=== PATIENT | male | born 1950 | race Caucasian/White ===

== ENCOUNTER → 2022-11-27 | Outpatient (CLI) | payer MEDICARE ==
--- NOTE | 2022-11-28 09:07 | CA ---
Transthoracic Echo Report Name: Serafin Prajapati Age: 72 Gender: M : 1950 Exam Date: 11/27/2022 13:56 Exam Location: [facility] Ht (in): 67 Wt (lb): 160 Ordering Physician: Jatin Patel DO Attending/Referring Phys: Manager House Estefani Beal RDCS Procedure CPT: Indications: I49.3 Cardiac Hx: Technical Quality: Good Contrast 1: Total Dose (mL): Contrast 2: Total Dose (mL): MEASUREMENTS (Male / Female) Normal Values 2D ECHO LV Diastolic Diameter PLAX 5.2 cm 4.2 - 5.9 / 3.9 - 5.3 cm LV Systolic Diameter PLAX 3.4 cm IVS Diastolic Thickness 1.2 cm 0.6 - 1.0 / 0.6 - 0.9 cm LVPW Diastolic Thickness 1.2 cm 0.6 - 1.0 / 0.6 - 0.9 cm LV Relative Wall Thickness 0.5 RV Internal Dim ED PLAX 3.6 cm LA Systolic Diameter LX 4.8 cm 3.0 - 4.0 / 2.7 - 3.8 cm LV Diastolic Volume MOD 4C 106.5 cm??? LV Systolic Volume MOD 4C 39.5 cm??? LV Ejection Fraction MOD 4C 62.9 % LV Diastolic Length 4C 8.4 cm LV Systolic Length 4C 6.7 cm LV Diastolic Volume MOD 2C 117.3 cm??? LV Systolic Volume MOD 2C 28.7 cm??? LV Ejection Fraction MOD 2C 75.5 % LV Diastolic Length 2C 8.9 cm LV Systolic Length 2C 7.0 cm LA Volume 80.2 cm??? 18 - 58 / 22 - 52 cm??? M-MODE Aortic Root Diameter MM 3.2 cm AV Cusp Separation MM 2.5 cm DOPPLER AV Peak Velocity 129.8 cm/s AV Peak Gradient 6.7 mmHg MV Peak Velocity 122.8 cm/s MV Peak Gradient 6.0 mmHg MV Mean Velocity 71.3 cm/s MV Mean Gradient 2.6 mmHg MV Velocity Time Integral 27.3 cm MV Area PHT 2.4 cm??? Mitral E Point Velocity 118.7 cm/s Mitral A Point Velocity 94.4 cm/s Mitral E to A Ratio 1.3 MV Deceleration Time 229.8 ms FINDINGS Left Ventricle Left ventricular ejection fraction is estimated at 55 %. Left ventricular cavity size normal. Mildly increased septal wall thickness. Right Ventricle Mild right ventricular dilatation. Unable to estimate the right ventricular systolic pressure. Right Atrium Normal right atrial size. Left Atrium Moderately increased left atrial diameter. Severely increased left atrial volume. Mildly increased left atrial area. Mitral Valve Mitral valve thickened. Mild mitral annular calcification. Mild mitral regurgitation. Aortic Valve Trileaflet aortic valve. Aortic valve sclerosis. Tricuspid Valve Structurally normal tricuspid valve. No tricuspid stenosis, regurgitation or prolapse. Pulmonic Valve Structurally normal pulmonic valve. No pulmonic regurgitation. Pericardium Normal pericardium. No pericardial effusion. Aorta Normal size aortic root and proximal ascending aorta. CONCLUSIONS Normal LV size and mild concentric LVH normal systolic function. Mild mitral and tricuspid regurgitation. No pulmonary hypertension. No pericardial effusion Previewed by: Dr. Dina Fontenot MD (Electronically Signed) Final Date: 28 Nov 2022 09:06
== END | disposition home or self-care (01) ==
LOC: RADECHMAIN 13:48
PROVIDERS: ATTEND Family Medicine
DX: I08.1 Rheumatic disorders of both mitral and tricuspid valves (principal); I49.3 Ventricular premature depolarization
CPT/HCPCS: 93306

== ENCOUNTER 2023-03-16 18:25 | Emergency (ER) | payer MEDICARE ==
--- NOTE | 2023-03-16 18:51 | ED ---
General Adult HPI - General Chief complaint: Overdose Stated complaint: Overdose-Suicidal Source: EMS Mode of arrival: EMS Limitations: altered mental status - History of Present Illness Initial comments: This is a 73-year-old male with a reported past medical history including anxi ety presents emergency department via EMS after a suicidal attempt. Is reported the patient was having suicidal thoughts and took 20 tablets of his 0.25 mg and asked tabs. The patient stated that he had these thoughts for a long time but has never acted on them. The patient stated that he wanted to hurt himself by taking these medications. The patient was drowsy on arrival however couldn't answer questions appropriately. The patient denied any other acute pain or complaints at this time. It was reported by EMS that the patient's is presenting to the emergency department to petition the patient as he is reportedly been suicidal over the last several days. - Related Data Home Medications Medication Instructions Recorded Confirmed ALPRAZolam [Xanax] 0.25 mg PO DAILY PRN 03/16/23 03/16/23 Aspirin 40.5 mg PO DAILY 03/16/23 03/16/23 Budesonide/Formoterol Fumarate 2 puff INHALATION RT-BID 03/16/23 03/16/23 [Symbicort 160-4.5 Mcg Inhaler] PARoxetine HCL [Paxil] 30 mg PO DAILY 03/16/23 03/16/23 Allergies Allergy/AdvReac Type Severity Reaction Status Date / Time clobetasol Allergy Rash/Hives Verified 03/17/23 00:49 codeine Allergy Abdominal Verified 03/17/23 00:49 Pain fluocinolone acetonide Allergy Rash/Hives Verified 03/17/23 00:49 Penicillins Allergy Rash/Hives Verified 03/17/23 00:49 Review of Systems ROS Statement: Those systems with pertinent positive or pertinent negative responses have been documented in the HPI. ROS Other: All systems not noted in ROS Statement are negative. Past Medical History Past Medical History: No Reported History History of Any Multi-Drug Resistant Organisms: None Reported Past Surgical History: No Surgical Hx Reported Past Psychological History: Anxiety, Depression Smoking Status: Never smoker Past Alcohol Use History: None Reported Past Drug Use History: None Reported General Exam Limitations: altered mental status (ANOx2-3) General appearance: in no apparent distress, lethargic Head exam: Present: atraumatic, normocephalic, normal inspection Eye exam: Present: normal appearance, PERRL Pupils: Present: normal accommodation ENT exam: Present: normal exam, normal oropharynx, mucous membranes moist Neck exam: Present: normal inspection, full ROM Respiratory exam: Present: normal lung sounds bilaterally Cardiovascular Exam: Present: regular rate, normal rhythm, normal heart sounds GI/Abdominal exam: Present: soft, normal bowel sounds Extremities exam: Present: normal inspection, full ROM Back exam: Present: normal inspection, full ROM Neurological exam: Present: alert, altered (ANOx2-3) Psychiatric exam: Present: suicidal ideation Skin exam: Present: warm, dry Course Vital Signs 03/16/23 03/17/23 03/17/23 18:32 07:22 10:00 Temperature 98.4 F Pulse Rate 64 80 80 Respiratory 16 20 20 Rate Blood Pressure 140/84 140/80 135/60 O2 Sat by Pulse 99 98 98 Oximetry 03/17/23 03/17/23 03/17/23 12:00 14:00 16:57 Temperature 98.3 F 98.2 F Pulse Rate 72 60 68 Respiratory 20 20 16 Rate Blood Pressure 140/60 150/70 168/78 O2 Sat by Pulse 98 98 98 Oximetry 03/17/23 03/17/23 03/18/23 18:00 20:54 06:24 Temperature 98.1 F 98 F Pulse Rate 72 60 66 Respiratory 20 19 19 Rate Blood Pressure 172/70 133/67 157/79 O2 Sat by Pulse 98 96 99 Oximetry 03/18/23 03/18/23 08:46 10:53 Temperature 97.9 F 97.6 F Pulse Rate 74 74 Respiratory 18 18 Rate Blood Pressure 157/73 172/69 O2 Sat by Pulse 97 98 Oximetry EKG Findings - EKG Comments: EKG Findings:: An EKG was obtained and was interpreted by myself showing a rate of 63, IA interval 179, QRS duration 94 and QTC of 459. This EKG showed a normal sinus rhythm with occasional PVCs. There was however no ST segment elevation or depression noted. Medical Decision Making - Medical Decision Making Was pt. sent in by a medical professional or institution (, PA, MOTORCYCLE DELIVERER, urgent care, hospital, or longterm...) When possible be specific @ -No Did you speak to anyone other than the patient for history (EMS, parent, family, police, friend...)? What history was obtained from this source @ -Yes, EMS who stated that the patient's was coming to petition the patient. It is also reported the patient was mildly lethargic on their arrival but was able to answer questions. Did you review nursing and triage notes (agree or disagree)? Why? @ -I reviewed and agree with nursing and triage notes Were old charts reviewed (outside hosp., previous admission, EMS record, old EKG, old radiological studies, urgent care reports/EKG's, longterm records)? Report findings @ -No old charts were reviewed Differential Diagnosis (chest pain, altered mental status, abdominal pain women, abdominal pain men, vaginal bleeding, weakness, fever, dyspnea, syncope, headache, dizziness, GI bleed, back pain, seizure, CVA, palpatations, mental health)? @ -Suicide ideation, suicide attempt, overdose EKG interpreted by me (3pts min.). @ -As above X-rays interpreted by me (1pt min.). @ -None done CT interpreted by me (1pt min.). @ -None done U/S interpreted by me (1pt. min.). @ -None done What testing was considered but not performed or refused? (CT, X-rays, U/S, labs)? Why? @ -None What meds were considered but not given or refused? Why? @ -None Did you discuss the management of the patient with other professionals (professionals i.e. , PA, MOTORCYCLE DELIVERER, lab, RT, psych nurse, social insurance specialist, textile technical officer, teacher, loan officer, bottle caser)? Give summary @ -Yes, poison control was contacted Was smoking cessation discussed for >3mins.? @ -No Was critical care preformed (if so, how long)? @ -No Were there social determinants of health that impacted care today? How? (Homelessness, low income, unemployed, alcoholism, drug addiction, transportation, low edu. Level, literacy, decrease access to med. care, snf, rehab)? @ -No Was there de-escalation of care discussed even if they declined (Discuss DNR or withdrawal of care, Hospice)? DNR status @ -No What co-morbidities impacted this encounter? (DM, HTN, Smoking, COPD, CAD, Cancer, CVA, ARF, Chemo, Hep., AIDS, mental health diagnosis, sleep apnea, morbid obesity)? @ -Anxiety Was patient admitted / discharged? Hospital course, mention meds given and route, prescriptions, significant lab abnormalities, going to OR and other pertinent info. @ -The patient was seen and evaluated emergency department. Physical exam, the patient was resting in bed without any acute distress. The patient was lethargic but was able to answer questions properly. Due to the nature the patient's overdose and suicide attempt, was in control was contacted and laboratory workup was obtained. The patient was advised to be monitored emergency department for approximately 6 hours and into the patient is to his baseline and negative medically cleared. The patient was signed out to the oncoming physician pending medical clearance for evaluation by EPS. The patient was signed out in stable condition. *Update - Patient was transferred to [facility] under a different physician on 03/18/23 at 1000. - Lab Data Result diagrams: 03/16/23 19:00 03/16/23 19:00 Lab Results 03/16/23 03/16/23 03/16/23 Range/Units 19:00 19:00 19:00 WBC 7.2 (3.8-10.6) k/uL RBC 4.04 L (4.30-5.90) m/uL Hgb 13.1 (13.0-17.5) gm/dL Hct 38.9 L (39.0-53.0) % MCV 96.5 (80.0-100.0) fL MCH 32.4 (25.0-35.0) pg MCHC 33.5 (31.0-37.0) g/dL RDW 13.2 (11.5-15.5) % Plt Count 126 L (150-450) k/uL MPV 9.5 Neutrophils % 68 % Lymphocytes % 21 % Monocytes % 8 % Eosinophils % 1 % Basophils % 1 % Neutrophils # 4.9 (1.3-7.7) k/uL Lymphocytes # 1.6 (1.0-4.8) k/uL Monocytes # 0.6 (0-1.0) k/uL Eosinophils # 0.1 (0-0.7) k/uL Basophils # 0.0 (0-0.2) k/uL PT 10.6 (9.0-12.0) sec INR 1.0 (<1.2) APTT 23.6 (22.0-30.0) sec Sodium 138 (137-145) mmol/L Potassium 3.5 (3.5-5.1) mmol/L Chloride 107 (98-107) mmol/L Carbon Dioxide 22 (22-30) mmol/L Anion Gap 9 mmol/L BUN 28 H (9-20) mg/dL Creatinine 0.70 (0.66-1.25) mg/dL Est GFR (CKD-EPI)AfAm >90 (>60 ml/min/1.73 sqM) Est GFR (CKD-EPI)NonAf >90 (>60 ml/min/1.73 sqM) Glucose 81 (74-99) mg/dL Calcium 8.6 (8.4-10.2) mg/dL Magnesium 1.9 (1.6-2.3) mg/dL Total Bilirubin 0.5 (0.2-1.3) mg/dL AST 22 (17-59) U/L ALT 20 (4-49) U/L Alkaline Phosphatase 49 (38-126) U/L Troponin I (0.000-0.034) ng/mL Total Protein 6.2 L (6.3-8.2) g/dL Albumin 3.6 (3.5-5.0) g/dL Lipase 107 (23-300) U/L Salicylates <1.0 mg/dL Urine Opiates Screen (NotDetected) Ur Oxycodone Screen (NotDetected) Urine Methadone Screen (NotDetected) Ur Propoxyphene Screen (NotDetected) Acetaminophen <10.0 ug/mL Ur Barbiturates Screen (NotDetected) U Tricyclic Antidepress (NotDetected) Ur Phencyclidine Scrn (NotDetected) Ur Amphetamines Screen (NotDetected) U Methamphetamines Scrn (NotDetected) U Benzodiazepines Scrn (NotDetected) Urine Cocaine Screen (NotDetected) U Marijuana (THC) Screen (NotDetected) Serum Alcohol <10 mg/dL Coronavirus (PCR) (Not Detectd) 03/16/23 03/16/23 03/16/23 Range/Units 19:00 19:00 20:17 WBC (3.8-10.6) k/uL RBC (4.30-5.90) m/uL Hgb (13.0-17.5) gm/dL Hct (39.0-53.0) % MCV (80.0-100.0) fL MCH (25.0-35.0) pg MCHC (31.0-37.0) g/dL RDW (11.5-15.5) % Plt Count (150-450) k/uL MPV Neutrophils % % Lymphocytes % % Monocytes % % Eosinophils % % Basophils % % Neutrophils # (1.3-7.7) k/uL Lymphocytes # (1.0-4.8) k/uL Monocytes # (0-1.0) k/uL Eosinophils # (0-0.7) k/uL Basophils # (0-0.2) k/uL PT (9.0-12.0) sec INR (<1.2) APTT (22.0-30.0) sec Sodium (137-145) mmol/L Potassium (3.5-5.1) mmol/L Chloride (98-107) mmol/L Carbon Dioxide (22-30) mmol/L Anion Gap mmol/L BUN (9-20) mg/dL Creatinine (0.66-1.25) mg/dL Est GFR (CKD-EPI)AfAm (>60 ml/min/1.73 sqM) Est GFR (CKD-EPI)NonAf (>60 ml/min/1.73 sqM) Glucose (74-99) mg/dL Calcium (8.4-10.2) mg/dL Magnesium (1.6-2.3) mg/dL Total Bilirubin (0.2-1.3) mg/dL AST (17-59) U/L ALT (4-49) U/L Alkaline Phosphatase (38-126) U/L Troponin I <0.012 (0.000-0.034) ng/mL Total Protein (6.3-8.2) g/dL Albumin (3.5-5.0) g/dL Lipase (23-300) U/L Salicylates mg/dL Urine Opiates Screen Not Detected (NotDetected) Ur Oxycodone Screen Not Detected (NotDetected) Urine Methadone Screen Not Detected (NotDetected) Ur Propoxyphene Screen Not Detected (NotDetected) Acetaminophen ug/mL Ur Barbiturates Screen Not Detected (NotDetected) U Tricyclic Antidepress Not Detected (NotDetected) Ur Phencyclidine Scrn Not Detected (NotDetected) Ur Amphetamines Screen Not Detected (NotDetected) U Methamphetamines Scrn Not Detected (NotDetected) U Benzodiazepines Scrn Detected H (NotDetected) Urine Cocaine Screen Not Detected (NotDetected) U Marijuana (THC) Screen Not Detected (NotDetected) Serum Alcohol mg/dL Coronavirus (PCR) Not Detected (Not Detectd) Disposition Clinical Impression: Suicide attempt Disposition: TRANSFER TO PSYCH HOSP/UNIT Condition: Stable Is patient prescribed a controlled substance at d/c from ED?: No Referrals: Jatin Patel DO [Primary Care Provider] - 1-2 days Time of Disposition: 10:00 (03/18/23) - Out of Hospital Transfer - Req. Specs Out of Hospital Transfer - Requested Specifics: Psychiatric Non-ICU ([facility]
[2023-03-16 19:16] LABS: Basophils % (A) 1 %; Eosinophils # (A) 0.1 k/uL (0-0.7); Eosinophils % (A) 1 %; HCT 38.9 % (39.0-53.0); HGB 13.1 gm/dL (13.0-17.5); Lymphocytes # (A) 1.6 k/uL (1.0-4.8); Lymphocytes % (A) 21 %; MCH 32.4 pg (25.0-35.0); MCHC 33.5 g/dL (31.0-37.0); MCV 96.5 fL (80.0-100.0); Mean Platelet Volume 9.5; Monocytes # (A) 0.6 k/uL (0-1.0); Monocytes % (A) 8 %; Neutrophils # (A) 4.9 k/uL (1.3-7.7); Neutrophils % (A) 68 %; Platelet Count 126 k/uL (150-450); RBC 4.04 m/uL (4.30-5.90); RDW 13.2 % (11.5-15.5); WBC 7.2 k/uL (3.8-10.6)
[2023-03-16 19:38] LABS: ALT 20 U/L (4-49); AST 22 U/L (17-59); Acetaminophen <10.0 ug/mL; African American GFR (CKD) >90 (>60 ml/min/1.73 sqM); Albumin 3.6 g/dL (3.5-5.0); Alcohol <10 mg/dL; Alkaline Phosphatase 49 U/L (38-126); Anion Gap 9 mmol/L; Blood Urea Nitrogen 28 mg/dL (9-20); Calcium 8.6 mg/dL (8.4-10.2); Carbon Dioxide 22 mmol/L (22-30); Chloride 107 mmol/L (98-107); Glucose 81 mg/dL (74-99); Lipase 107 U/L (23-300); Magnesium 1.9 mg/dL (1.6-2.3); Non-African American GFR(CKD) >90 (>60 ml/min/1.73 sqM); Potassium 3.5 mmol/L (3.5-5.1); Salicylate <1.0 mg/dL; Sodium 138 mmol/L (137-145); Total Bilirubin 0.5 mg/dL (0.2-1.3); Total Protein 6.2 g/dL (6.3-8.2)
[2023-03-16 20:36] LABS: Partial Thromboplastin Time 23.6 sec (22.0-30.0); Prothrombin Time 10.6 sec (9.0-12.0)
[2023-03-16 20:50] LABS: Amphetamine Screen,Urine Not Detected (NotDetected); Barbiturate Screen,Urine Not Detected (NotDetected); Benzodiazepines Screen,Urine Detected (NotDetected); Cocaine Screen,Urine Not Detected (NotDetected); Methadone Screen, Urine Not Detected (NotDetected); Opiate Screen,Urine Not Detected (NotDetected); Phencyclidine Screen,Urine Not Detected (NotDetected); Tricyclic Antidepressant,Urine Not Detected (NotDetected); Urn Cannabinoid Scrn Not Detected (NotDetected)
[2023-03-16 20:51] LABS: Oxycodone Screen, Urine Not Detected (NotDetected)
[2023-03-17] MEDS ORDERED: PARoxetine 10 MG TAB PO STA (15:59)
[2023-03-17] MEDS ORDERED: SYMBICORT 160-4.5 MCG INHALER INHALATION STA (16:00)
[2023-03-17] MEDS ORDERED: ACETAMINOPHEN TAB 325 MG TAB PO STA (23:17)
[2023-03-18 08:47] VITALS: PULSE 74; RESP 18
[2023-03-18 10:56] VITALS: BP 172/69; TEMP 97.6
== END 2023-03-18 10:56 ==
LOC: EC 18:25
DX: R45.851 Suicidal ideations (principal); F41.9 Anxiety disorder, unspecified; F32.A Depression, unspecified; Z88.0 Allergy status to penicillin; Z88.5 Allergy status to narcotic agent; Z88.8 Allergy status to other drugs, medicaments and biological substances; Z79.82 Long term (current) use of aspirin; Z79.899 Other long term (current) drug therapy; Z20.822 Contact with and (suspected) exposure to COVID-19
CPT/HCPCS: 82075; 36415; 94640; 93005; 80053; 83690; 83735; 84484; 85025; 85610; 85730; 80306; 80143; 87635; 80179; 99285; G0480; 80320

== ENCOUNTER 2024-02-05 18:02 | Observation (INO) | payer MEDICARE ==
[2024-02-05 20:04] LABS: Basophils # (A) 0.1 k/uL (0-0.2); Basophils % (A) 1 %; Eosinophils # (A) 0.1 k/uL (0-0.7); Eosinophils % (A) 2 %; HGB 14.5 gm/dL (13.0-17.5); Lymphocytes # (A) 2.3 k/uL (1.0-4.8); Lymphocytes % (A) 33 %; MCH 31.2 pg (25.0-35.0); MCHC 32.9 g/dL (31.0-37.0); Mean Platelet Volume 8.7; Monocytes # (A) 0.5 k/uL (0-1.0); Monocytes % (A) 7 %; Neutrophils # (A) 3.7 k/uL (1.3-7.7); Neutrophils % (A) 54 %; Platelet Count 155 k/uL (150-450); RBC 4.64 m/uL (4.30-5.90); RDW 13.6 % (11.5-15.5); WBC 6.8 k/uL (3.8-10.6)
[2024-02-05 20:05] LABS: Appearance,Urine Clear (Clear); Bilirubin,Urine Negative (Negative); Blood,Urine Negative (Negative); Color,Urine Colorless; Glucose,Urine (UA) Negative (Negative); Ketones,Urine Negative (Negative); Leukocyte Esterase,Urine Negative (Negative); Nitrite,Urine Negative (Negative); Protein,Urine Negative (Negative); Specific Gravity,Urine 1.005 (1.001-1.035); Urobilinogen,Urine <2.0 mg/dL (<2.0)
[2024-02-05] MEDS: SODIUM CHLORIDE 0.9% 500 ML 500 ML IV STA (20:09)
[2024-02-05 20:11] LABS: ALT 20 U/L (4-49); AST 26 U/L (17-59); African American GFR (CKD) >90 (>60 ml/min/1.73 sqM); Albumin 4.7 g/dL (3.5-5.0); Alkaline Phosphatase 51 U/L (38-126); Anion Gap 10 mmol/L; Blood Urea Nitrogen 24 mg/dL (9-20); Calcium 9.7 mg/dL (8.4-10.2); Carbon Dioxide 22 mmol/L (22-30); Chloride 109 mmol/L (98-107); Glucose 87 mg/dL (74-99); Non-African American GFR(CKD) >90 (>60 ml/min/1.73 sqM); Phosphorus 2.8 mg/dL (2.5-4.5); Sodium 141 mmol/L (137-145); Total Bilirubin 0.4 mg/dL (0.2-1.3); Total Protein 7.4 g/dL (6.3-8.2)
[2024-02-05 20:12] LABS: INR 0.9 (<1.2); Partial Thromboplastin Time 23.7 sec (22.0-30.0); Prothrombin Time 10.5 sec (10.0-12.5)
--- NOTE | 2024-02-05 20:24 | XR ---
EXAMINATION TYPE: XR chest 2V DATE OF EXAM: 02/05/2024 8:05 PM CLINICAL INDICATION:Male, 73 years old with history of Weakness; [facility] COMPARISON: Chest radiograph 10/24/2013 TECHNIQUE: XR chest 2V Frontal and lateral views of the chest. FINDINGS: Lungs/Pleura: There is no evidence of pleural effusion, focal consolidation, or pneumothorax. Suspected right suprahilar nodule Pulmonary vascularity: Unremarkable. Heart/mediastinum: Cardiomediastinal silhouette is unremarkable. Musculoskeletal: No acute osseous pathology. Other findings: None Lines/Tubes: IMPRESSION: No acute cardiopulmonary disease/process. Suspected 1 cm left supraclavicular enlargement. CT chest with contrast
[2024-02-05] MEDS ORDERED: NALOXONE 0.4 MG/ML 1 ML VIAL IV PRN (21:17)
[2024-02-05] MEDS ORDERED: ACETAMINOPHEN TAB 325 MG TAB PO PRN (21:17)
--- NOTE | 2024-02-05 21:22 | ED ---
Weakness HPI - General Chief complaint: Weakness Stated complaint: high blood pressure/dizzy Time Seen by Provider: 02/05/24 19:24 Source: patient Mode of arrival: ambulatory Limitations: no limitations - History of Present Illness Initial comments: 73-year-old male presenting with chief complaint of episode of generalized weakness. Patient states that he was resting at home when he began to feel generally unwell. He felt extremely fatigued and sluggish. He checked his vitals which showed heart rate in the 30s and blood pressure with 210 systolic measurement. Patient did manually verify that his heart rate was in the 30s. This prompted him to come to the ER. He reports that he recently started taking BuSpar and is concerned that this may be the cause of his symptoms. He denies any chest pain. Does report mild difficulty breathing. History of asthma. No nausea, vomiting, abdominal pain. No current dizziness. No numbness tingling. - Related Data Home Medications Medication Instructions Recorded Confirmed Aspirin 81 mg PO DAILY 03/16/23 02/05/24 Budesonide/Formoterol Fumarate 2 puff INHALATION RT-BID 03/16/23 02/05/24 [Symbicort 160-4.5 Mcg Inhaler] PARoxetine [Paxil] 20 mg PO DAILY 02/05/24 02/05/24 QUEtiapine [SEROquel] 75 mg PO HS 02/05/24 02/05/24 busPIRone HCl [Buspar] 5 mg PO BID 02/05/24 02/05/24 Allergies Allergy/AdvReac Type Severity Reaction Status Date / Time Antihistamines - Piperazine Allergy Itching Verified 02/05/24 21:15 bacitracin Allergy Anaphylaxis Verified 02/05/24 21:15 [From Neosporin ([id number])] clobetasol Allergy Rash/Hives Verified 02/05/24 21:15 fluocinolone acetonide Allergy Rash/Hives Verified 02/05/24 21:15 neomycin Allergy Anaphylaxis Verified 02/05/24 21:15 [From Neosporin ([id number])] Penicillins Allergy Rash/Hives Verified 02/05/24 21:15 polymyxin B Allergy Anaphylaxis Verified 02/05/24 21:15 [From Neosporin ([id number])] codeine AdvReac Abdominal Verified 02/05/24 21:15 Pain Review of Systems ROS Statement: Those systems with pertinent positive or pertinent negative responses have been documented in the HPI. ROS Other: All systems not noted in ROS Statement are negative. Past Medical History Past Medical History: No Reported History History of Any Multi-Drug Resistant Organisms: None Reported Past Surgical History: No Surgical Hx Reported Past Psychological History: Anxiety, Depression Smoking Status: Never smoker Past Alcohol Use History: None Reported Past Drug Use History: None Reported General Exam Limitations: no limitations General appearance: alert, in no apparent distress Head exam: Present: atraumatic, normocephalic Eye exam: Present: normal appearance, PERRL, EOMI Pupils: Present: normal accommodation Neck exam: Present: normal inspection. Absent: meningismus Respiratory exam: Present: normal lung sounds bilaterally. Absent: respiratory distress, wheezes, rales, rhonchi, stridor Cardiovascular Exam: Present: regular rate, normal rhythm, normal heart sounds. Absent: systolic murmur, diastolic murmur, rubs, gallop, clicks Extremities exam: Present: normal inspection, full ROM Neurological exam: Present: alert, oriented X3 Expanded Patient oriented to: Present: person, place, time Speech: Present: fluid speech Cranial nerves: EOM's Intact: Normal Motor strength exam: RUE: 5, LUE: 5, RLE: 5, LLE: 5 Eye Response: (4) open spontaneously Motor Response: (6) obeys commands Verbal Response: (5) oriented [place] Total: 15 Psychiatric exam: Present: normal affect, normal mood Skin exam: Present: warm, dry Course Vital Signs 02/05/24 02/05/24 18:25 19:45 Temperature 97.6 F Pulse Rate 61 63 Respiratory 18 17 Rate Blood Pressure 187/92 174/97 O2 Sat by Pulse 98 96 Oximetry Medical Decision Making - Medical Decision Making Was pt. sent in by a medical professional or institution (, PA, BILINGUAL MEDICAL RECEPTIONIST, urgent care, hospital, or halfway...) When possible be specific @ -No Did you speak to anyone other than the patient for history (EMS, parent, family, police, friend...)? What history was obtained from this source @ -No Did you review nursing and triage notes (agree or disagree)? Why? @ -I reviewed and agree with nursing and triage notes Were old charts reviewed (outside hosp., previous admission, EMS record, old EKG, old radiological studies, urgent care reports/EKG's, halfway records)? Report findings @ -No old charts were reviewed Differential Diagnosis (chest pain, altered mental status, abdominal pain women, abdominal pain men, vaginal bleeding, weakness, fever, dyspnea, syncope, headache, dizziness, GI bleed, back pain, seizure, CVA, palpatations, mental health, musculoskeletal)? @ -MDM Differential Weakness: Hypoglycemia, shock, sepsis, hyponatremia, anemia, infection, HI, ETOH, adverse medicine reaction, overdose, stroke. ... This is not meant to be an all- inclusive list EKG interpreted by me (3pts min.). @ -EKG shows sinus bradycardia with frequent ventricular premature complexes. Ventricular rate 57. [place] interval 184. QRS 100. QT 426. QTc 420. X-rays interpreted by me (1pt min.). @ -Chest x-ray shows no acute cardiopulmonary disease/process. Suspected 1 cm left supraclavicular enlargement. CT interpreted by me (1pt min.). @ -None done U/S interpreted by me (1pt. min.). @ -None done What testing was considered but not performed or refused? (CT, X-rays, U/S, labs)? Why? @ -None What meds were considered but not given or refused? Why? @ -None Did you discuss the management of the patient with other professionals (pr ofessionals i.e. , PA, BILINGUAL MEDICAL RECEPTIONIST, lab, RT, psych nurse, child welfare social worker, stone layer, teacher, special officer, housing case manager)? Give summary @ -Spoke with Dr. Wong who accepted admission Was smoking cessation discussed for >3mins.? @ -No Was critical care preformed (if so, how long)? @ -No Were there social determinants of health that impacted care today? How? (Homelessness, low income, unemployed, alcoholism, drug addiction, transportation, low edu. Level, literacy, decrease access to med. care, snf, rehab)? @ -No Was there de-escalation of care discussed even if they declined (Discuss DNR or withdrawal of care, Hospice)? DNR status @ -No What co-morbidities impacted this encounter? (DM, HTN, Smoking, COPD, CAD, Cancer, CVA, ARF, Chemo, Hep., AIDS, mental health diagnosis, sleep apnea, morbid obesity)? @ -None Was patient admitted / discharged? Hospital course, mention meds given and route , prescriptions, significant lab abnormalities, going to OR and other pertinent info. @ -73-year-old male presenting after an episode of feeling generally unwell and fatigued when he noticed that his heart rate was low in the 30s and his blood pressure was elevated above 200 systolic range. At this time he feels well, he has been hypertensive and is heart rate ranges from the high 50s to low 60s. No focal neurological deficits on exam. EKG shows sinus bradycardia with frequent ventricular premature complexes. Chest x-ray shows no acute cardiopulmonary process. There is a pulmonary nodule, I did inform the patient of the pulmonary nodule I explained to him that he needs to follow-up with his PCP and obtain a chest CT for further evaluation, I stressed the importance of this. Lab work requires no action. On reassessment he is resting comfortably showing no acute signs of distress. He will be admitted for symptomatic bradycardia. He is agreeable with this plan. I discussed this case with my attending Dr. Freeman Undiagnosed new problem with uncertain prognosis? @ -No Drug Therapy requiring intensive monitoring for toxicity (Heparin, Nitro, Insulin, Cardizem)? @ -No Were any procedures done? @ -No Diagnosis/symptom? @ -Symptomatic bradycardia Acute, or Chronic, or Acute on Chronic? @ -Acute Uncomplicated (without systemic symptoms) or Complicated (systemic symptoms)? @ -Complicated Side effects of treatment? @ -No Exacerbation, Progression, or Severe Exacerbation? @ -No Poses a threat to life or bodily function? How? (Chest pain, USA, HI, pneumonia, PE, COPD, DKA, ARF, appy, cholecystitis, CVA, Diverticulitis, Homicidal, Suicidal, threat to staff... and all critical care pts) @ -Yes - Lab Data Result diagrams: 02/05/24 19:53 02/05/24 19:53 Lab Results 02/05/24 02/05/24 02/05/24 Range/Units 19:53 19:53 19:53 WBC 6.8 (3.8-10.6) k/uL RBC 4.64 (4.30-5.90) m/uL Hgb 14.5 (13.0-17.5) gm/dL Hct 44.0 (39.0-53.0) % MCV 95.0 (80.0-100.0) fL MCH 31.2 (25.0-35.0) pg MCHC 32.9 (31.0-37.0) g/dL RDW 13.6 (11.5-15.5) % Plt Count 155 (150-450) k/uL MPV 8.7 Neutrophils % 54 % Lymphocytes % 33 % Monocytes % 7 % Eosinophils % 2 % Basophils % 1 % Neutrophils # 3.7 (1.3-7.7) k/uL Lymphocytes # 2.3 (1.0-4.8) k/uL Monocytes # 0.5 (0-1.0) k/uL Eosinophils # 0.1 (0-0.7) k/uL Basophils # 0.1 (0-0.2) k/uL PT 10.5 (10.0-12.5) sec INR 0.9 (<1.2) APTT 23.7 (22.0-30.0) sec Sodium 141 (137-145) mmol/L Potassium 4.0 (3.5-5.1) mmol/L Chloride 109 H (98-107) mmol/L Carbon Dioxide 22 (22-30) mmol/L Anion Gap 10 mmol/L BUN 24 H (9-20) mg/dL Creatinine 0.68 (0.66-1.25) mg/dL Est GFR (CKD-EPI)AfAm >90 (>60 ml/min/1.73 sqM) Est GFR (CKD-EPI)NonAf >90 (>60 ml/min/1.73 sqM) Glucose 87 (74-99) mg/dL Plasma Lactic Acid Junaid (0.7-2.0) mmol/L Calcium 9.7 (8.4-10.2) mg/dL Phosphorus 2.8 (2.5-4.5) mg/dL Magnesium 2.0 (1.6-2.3) mg/dL Total Bilirubin 0.4 (0.2-1.3) mg/dL AST 26 (17-59) U/L ALT 20 (4-49) U/L Alkaline Phosphatase 51 (38-126) U/L Troponin I (0.000-0.034) ng/mL Total Protein 7.4 (6.3-8.2) g/dL Albumin 4.7 (3.5-5.0) g/dL Urine Color Urine Appearance (Clear) Urine pH (5.0-8.0) Ur Specific Chemult (1.001-1.035) Urine Protein (Negative) Urine Glucose (UA) (Negative) Urine Ketones (Negative) Urine Blood (Negative) Urine Nitrite (Negative) Urine Bilirubin (Negative) Urine Urobilinogen (<2.0) mg/dL Ur Leukocyte Esterase (Negative) 02/05/24 02/05/24 02/05/24 Range/Units 19:53 19:53 19:57 WBC (3.8-10.6) k/uL RBC (4.30-5.90) m/uL Hgb (13.0-17.5) gm/dL Hct (39.0-53.0) % MCV (80.0-100.0) fL MCH (25.0-35.0) pg MCHC (31.0-37.0) g/dL RDW (11.5-15.5) % Plt Count (150-450) k/uL MPV Neutrophils % % Lymphocytes % % Monocytes % % Eosinophils % % Basophils % % Neutrophils # (1.3-7.7) k/uL Lymphocytes # (1.0-4.8) k/uL Monocytes # (0-1.0) k/uL Eosinophils # (0-0.7) k/uL Basophils # (0-0.2) k/uL PT (10.0-12.5) sec INR (<1.2) APTT (22.0-30.0) sec Sodium (137-145) mmol/L Potassium (3.5-5.1) mmol/L Chloride (98-107) mmol/L Carbon Dioxide (22-30) mmol/L Anion Gap mmol/L BUN (9-20) mg/dL Creatinine (0.66-1.25) mg/dL Est GFR (CKD-EPI)AfAm (>60 ml/min/1.73 sqM) Est GFR (CKD-EPI)NonAf (>60 ml/min/1.73 sqM) Glucose (74-99) mg/dL Plasma Lactic Acid Junaid 1.8 (0.7-2.0) mmol/L Calcium (8.4-10.2) mg/dL Phosphorus (2.5-4.5) mg/dL Magnesium (1.6-2.3) mg/dL Total Bilirubin (0.2-1.3) mg/dL AST (17-59) U/L ALT (4-49) U/L Alkaline Phosphatase (38-126) U/L Troponin I <0.012 (0.000-0.034) ng/mL Total Protein (6.3-8.2) g/dL Albumin (3.5-5.0) g/dL Urine Color Colorless Urine Appearance Clear (Clear) Urine pH 5.0 (5.0-8.0) Ur Specific Chemult 1.005 (1.001-1.035) Urine Protein Negative (Negative) Urine Glucose (UA) Negative (Negative) Urine Ketones Negative (Negative) Urine Blood Negative (Negative) Urine Nitrite Negative (Negative) Urine Bilirubin Negative (Negative) Urine Urobilinogen <2.0 (<2.0) mg/dL Ur Leukocyte Esterase Negative (Negative) Disposition Clinical Impression: Symptomatic bradycardia Disposition: ADMITTED IP TO THIS HOSP Condition: Fair Time of Disposition: 21:21
[2024-02-05] MEDS: QUEtiapine 25 MG TAB PO SCH (23:21)
[2024-02-05] MEDS: busPIRone HCl 5 MG TAB PO SCH (23:21)
[2024-02-05] MEDS: hydroCHLOROthiazide 12.5 MG CAP PO SCH (23:22)
[2024-02-05] MEDS: ENOXAPARIN 40 MG/0.4 ML SYRINGE SQ SCH (23:22)
[2024-02-06] MEDS: SYMBICORT 160-4.5 MCG INHALER INHALATION SCH (00:02)
[2024-02-06] MEDS: PARoxetine 20 MG TAB PO SCH (09:30)
[2024-02-06] MEDS: ASPIRIN 81 MG PO SCH (09:30)
--- NOTE | 2024-02-06 11:26 | P.CRDCN ---
History of Present Illness Consult date: 02/06/24 History of present illness: This is a 73-year-old gentleman with no prior cardiovascular history and never seen a lard maker before but history of asthma only who was admitted to the hospital for further evaluation of the bradycardia. The patient was in his usual state of health till yesterday and he was sitting home and felt tired. Subsequently he checked his blood pressure and heart rate. His pressure has been elevated but the heart rate has been in the 30s according to him. That was checked manually. He decided to come for further evaluation. He underwent an EKG in the hospital and that showed sinus mechanism with PVCs and during his hospital stay his heart rate did not drop below 50. He was not on any AV noy julio agents as an outpatient. His pressure noted to be elevated and subsequently was started on hydrochlorothiazide with improvement in the blood pressure. He reports no other cardiovascular symptoms of any chest pain or chest discomfort or dizziness or lightheadedness or presyncope or syncope or edema in the lower extremities. The first set of troponin came in to be unremarkable with no TSH or T4. The first set troponin is unremarkable but no second or third set of troponin. Echocardiogram still pending. The examination is remarkable for regular rhythm with a soft systolic murmur and clear breathing sounds bilaterally and no edema was noted in the lower extremities Assessment Bradycardia by history Hypertension Asthma Plan Avoid any AV noy julio agents Monitor the patient for additional 24 hours Follow-up on the echocardiogram Obtain TSH and free T4 Obtain 1 more set of troponin Follow-up with the patient Past Medical History Past Medical History: No Reported History History of Any Multi-Drug Resistant Organisms: None Reported Past Surgical History: No Surgical Hx Reported Past Anesthesia/Blood Transfusion Reactions: No Reported Reaction Past Psychological History: Anxiety, Depression Smoking Status: Never smoker Past Alcohol Use History: None Reported Past Drug Use History: None Reported Medications and Allergies Home Medications Medication Instructions Recorded Confirmed Type Aspirin 81 mg PO DAILY 03/16/23 02/05/24 History Budesonide/Formoterol Fumarate 2 puff INHALATION RT-BID 03/16/23 02/05/24 History [Symbicort 160-4.5 Mcg Inhaler] PARoxetine [Paxil] 20 mg PO DAILY 02/05/24 02/05/24 History QUEtiapine [SEROquel] 75 mg PO HS 02/05/24 02/05/24 History busPIRone HCl [Buspar] 5 mg PO BID 02/05/24 02/05/24 History Allergies Allergy/AdvReac Type Severity Reaction Status Date / Time Antihistamines - Piperazine Allergy Itching Verified 02/05/24 21:15 bacitracin Allergy Anaphylaxis Verified 02/05/24 21:15 [From Neosporin ([id number])] clobetasol Allergy Rash/Hives Verified 02/05/24 21:15 fluocinolone acetonide Allergy Rash/Hives Verified 02/05/24 21:15 neomycin Allergy Anaphylaxis Verified 02/05/24 21:15 [From Neosporin ([id number])] Penicillins Allergy Rash/Hives Verified 02/05/24 21:15 polymyxin B Allergy Anaphylaxis Verified 02/05/24 21:15 [From Neosporin ([id number])] codeine AdvReac Abdominal Verified 02/05/24 21:15 Pain Physical Exam Vitals: Vital Signs Temp Pulse Pulse Resp BP BP Pulse Ox 02/06/24 09:28 98.1 F 61 15 144/79 98 02/06/24 04:00 97.6 F 57 L 18 99/57 95 02/06/24 01:52 62 18 02/06/24 01:44 62 110/56 02/06/24 00:00 97.4 F L 61 18 182/84 96 02/05/24 23:00 62 18 02/05/24 22:53 97.0 F L 63 18 195/93 92 L 02/05/24 19:45 63 17 174/97 96 02/05/24 18:25 97.6 F 61 18 187/92 98 Intake and Output 02/05/24 02/06/24 02/06/24 22:59 06:59 14:59 Intake Total 10 110 Balance 10 110 Intake: IV 10 0.9 10 Oral 110 Other: Voiding Method Toilet Toilet # Voids 1 Weight 77.111 kg 77.1 kg Results 02/05/24 19:53 02/05/24 19:53 Cardiac Enzymes 02/05/24 02/05/24 Range/Units 19:53 19:53 AST 26 (17-59) U/L Troponin I <0.012 (0.000-0.034) ng/mL Coagulation 02/05/24 Range/Units 19:53 PT 10.5 (10.0-12.5) sec APTT 23.7 (22.0-30.0) sec CBC 02/05/24 Range/Units 19:53 WBC 6.8 (3.8-10.6) k/uL RBC 4.64 (4.30-5.90) m/uL Hgb 14.5 (13.0-17.5) gm/dL Hct 44.0 (39.0-53.0) % Plt Count 155 (150-450) k/uL Comprehensive Metabolic Panel 02/05/24 Range/Units 19:53 Sodium 141 (137-145) mmol/L Potassium 4.0 (3.5-5.1) mmol/L Chloride 109 H (98-107) mmol/L Carbon Dioxide 22 (22-30) mmol/L BUN 24 H (9-20) mg/dL Creatinine 0.68 (0.66-1.25) mg/dL Glucose 87 (74-99) mg/dL Calcium 9.7 (8.4-10.2) mg/dL AST 26 (17-59) U/L ALT 20 (4-49) U/L Alkaline Phosphatase 51 (38-126) U/L Total Protein 7.4 (6.3-8.2) g/dL Albumin 4.7 (3.5-5.0) g/dL Current Medications Generic Name Dose Route Start Last Admin Trade Name Freq PRN Reason Stop Dose Admin Acetaminophen 650 mg 02/05/24 21:17 Acetaminophen Tab 325 Mg Tab PO Q6HR PRN Mild Pain or Fever > 100.5 Aspirin 81 mg 02/06/24 09:00 02/06/24 09:30 Aspirin 81 Mg PO 81 mg DAILY ABIGAIL Administration Budesonide/Formoterol Fumarate 2 puff 02/05/24 23:15 02/06/24 09:04 Symbicort 160-4.5 Mcg Inhaler INHALATION 2 puff RT-BID ABIGAIL Administration Buspirone HCl 5 mg 02/05/24 23:15 02/06/24 09:30 Buspirone Hcl 5 Mg Tab PO 5 mg BID ABIGAIL Administration Enoxaparin Sodium 40 mg 02/05/24 23:15 02/06/24 09:30 Enoxaparin 40 Mg/0.4 Ml Syringe SQ 40 mg DAILY ABIGAIL Administration Hydrochlorothiazide 12.5 mg 02/05/24 23:15 02/05/24 23:22 Hydrochlorothiazide 12.5 Mg Cap PO 12.5 mg HS ABIGAIL Administration Naloxone HCl 0.2 mg 02/05/24 21:17 Naloxone 0.4 Mg/Ml 1 Ml Vial IV Q2M PRN Opioid Reversal Paroxetine HCl 20 mg 02/06/24 09:00 02/06/24 09:30 Paroxetine 20 Mg Tab PO 20 mg DAILY ABIGAIL Administration Quetiapine Fumarate 75 mg 02/05/24 23:15 02/05/24 23:21 Quetiapine 25 Mg Tab PO 75 mg HS ABIGAIL Administration Intake and Output 02/05/24 02/06/24 02/06/24 22:59 06:59 14:59 Intake Total 10 110 Balance 10 110 Intake: IV 10 0.9 10 Oral 110 Other: Voiding Method Toilet Toilet # Voids 1 Weight 77.111 kg 77.1 kg 02/05/24 19:53 02/05/24 19:53
--- NOTE | 2024-02-06 13:40 | CA ---
Transthoracic Echo Report Name: Serafin Prajapati Age: 73 Gender: M : 1950 Exam Date: 02/06/2024 08:34 Exam Location: [place] [facility] Ht (in): 67 Wt (lb): 170 Ordering Physician: Justin Martinez Attending/Referring Phys: Visual And Stock Associate Estefani Beal RDCS Procedure CPT: Indications: symptomatic bradycardia Cardiac Hx: Technical Quality: Good Contrast 1: Total Dose (mL): Contrast 2: Total Dose (mL): MEASUREMENTS (Male / Female) Normal Values 2D ECHO LV Diastolic Diameter PLAX 4.8 cm 4.2 - 5.9 / 3.9 - 5.3 cm LV Systolic Diameter PLAX 3.3 cm IVS Diastolic Thickness 1.1 cm 0.6 - 1.0 / 0.6 - 0.9 cm LVPW Diastolic Thickness 1.0 cm 0.6 - 1.0 / 0.6 - 0.9 cm LV Relative Wall Thickness 0.4 RV Internal Dim ED PLAX 3.5 cm LVOT Diameter 2.5 cm LA Systolic Diameter LX 4.9 cm 3.0 - 4.0 / 2.7 - 3.8 cm LV Diastolic Volume MOD BP 125.6 cm??? 67 - 155 / 56 - 104 cm??? LV Systolic Volume MOD BP 49.5 cm??? 22 - 58 / 19 - 49 cm??? LV Ejection Fraction MOD BP 60.6 % >= 55 % LV Cardiac Index MOD BP 2885.7 cm???/min???m??? LV Diastolic Volume MOD 4C 131.5 cm??? LV Systolic Volume MOD 4C 57.2 cm??? LV Ejection Fraction MOD 4C 56.5 % LV Cardiac Index MOD 4C 2818.9 cm???/min???m??? LV Diastolic Length 4C 8.5 cm LV Systolic Length 4C 7.5 cm LV Diastolic Volume MOD 2C 118.8 cm??? LV Systolic Volume MOD 2C 41.4 cm??? LV Ejection Fraction MOD 2C 65.2 % LV Cardiac Index MOD 2C 2937.8 cm???/min???m??? LV Diastolic Length 2C 8.7 cm LV Systolic Length 2C 8.0 cm LA Volume 111.4 cm??? 18 - 58 / 22 - 52 cm??? LA Volume Index 57.9 cm???/m??? 16 - 28 cm???/m??? M-MODE Aortic Root Diameter MM 3.3 cm AV Cusp Separation MM 2.5 cm DOPPLER AV Peak Velocity 157.5 cm/s AV Peak Gradient 9.9 mmHg AI Peak Velocity 374.2 cm/s AI Peak Gradient 56.0 mmHg AI Pressure Half Time 1144.9 ms MV Area PHT 3.2 cm??? MR Peak Velocity 516.0 cm/s MR Peak Gradient 106.5 mmHg Mitral E Point Velocity 108.4 cm/s Mitral A Point Velocity 95.2 cm/s Mitral E to A Ratio 1.1 MV Deceleration Time 240.0 ms TR Peak Velocity 247.5 cm/s TR Peak Gradient 24.5 mmHg Right Ventricular Systolic Press 28.9 mmHg FINDINGS Left Ventricle Left ventricular ejection fraction is estimated at 60-60 %. Left ventricular cavity size normal. Normal left ventricular wall motion. Mildly increased septal wall thickness. Right Ventricle Mild right ventricular dilatation. Right ventricular systolic pressure within normal limits. Right Atrium Normal right atrial size. No right atrial thrombus or mass seen. Left Atrium Moderately increased left atrial diameter. Severely increased left atrial volume. Moderately increased left atrial area. Mitral Valve Mitral valve thickened. Moderate mitral regurgitation. Mild mitral annular calcification. Aortic Valve Trileaflet aortic valve. Trace to mild aortic regurgitation. Tricuspid Valve Structurally normal tricuspid valve. Mild tricuspid regurgitation. Pulmonic Valve Structurally normal pulmonic valve. No pulmonic regurgitation. Pericardium No pericardial effusion. Trace pleural effusion. Aorta Normal size aortic root and proximal ascending aorta. CONCLUSIONS Normal biventricular systolic function Moderate mitral regurgitation Trace pericardial effusion Previewed by: Dr. Kvng Burgess MD (Electronically Signed) Final Date: 06 February 2024 13:39
--- NOTE | 2024-02-06 17:54 | P.HPIM ---
History of Present Illness H&P Date: 02/06/24 Chief Complaint: Feeling unwell This is a pleasant 73-year-old patient, follows with Dr. Patel. Chronic stable medical condition include anxiety, depression, asthma. Patient yesterday afternoon just felt unwell. Took his vital signs. Heart rate was 30. Blood pressure was 210 x 110. Patient was previously on blood pressure medications has lost some weight. And he was taken off blood pressure medication June 2022. Denies any chest pain. EKG in the ER showed sinus rhythm. Review of systems: GEN.: Tired EYES: None HEENT: None NECK: None RESPIRATORY: None CARDIOVASCULAR: None GASTROINTESTINAL: None GENITOURINARY: None MUSCULOSKELETAL: None LYMPHATICS: None HEMATOLOGICAL: None PSYCHIATRY: None NEUROLOGICAL: None Social history: . Retired from the [employer]. No history of smoking alcohol. Physical examination: VITAL SIGNS: 98.1, 61, 15, 144/79, 98% on room air GENERAL: BMI 26.6, resting in bed comfortable. EYES: Pupils equal. Conjunctiva frida l. HEENT: External appearance of nose and ears normal, oral cavity grossly normal. NECK: JVD not raised; masses not palpable. HEART: First and second heart sounds are normal; no edema. LUNGS: Respiratory rate normal; clear to auscultation. ABDOMEN: Soft, nontender, liver spleen not palpable, no masses palpable. PSYCH: Alert and oriented x3; mood and affect frida l. MUSCULOSKELETAL:No Clubbing/cyanosis;muscles-grossly intact NEUROLOGICAL: Cranial nerves grossly intact; no facial asymmetry, power and sensation grossly intact. LYMPHATICS: No lymph nodes palpable in the axilla and neck INVESTIGATIONS, reviewed in the clinical context: White count 6.8 hemoglobin 14.5 platelets 155 potassium 4 creatinine 0.68 Troponin I less than 0.012 x 2 TSH 2.01 EKG tracing personally reviewed by me-normal sinus rhythm. PVC. Chest x-ray film personally reviewed by me-no acute 2D echocardiogram: Moderate mitral regurgitation. 60% Assessment plan: -Episode of patient feeling unwell. Blood pressure recorded at home was 210 x 110 and heart rate of 30. EKG in the ER showed a heart rate of 57. Telemetry monitoring -Essential hypertension with urgency Patient has been previously taking blood pressure medication up till July 01 to but after losing weight was taken off blood pressure medications. Will start the patient on Zestoretic 20/12.5 nightly. -Moderate mitral regurgitation -Depression BuSpar. -Anxiety Paxil 20 mg a day -Insomnia Seroquel -Moderate persistent asthma Symbicort 160/4.52 puffs twice daily Care was discussed with the patient. Questions answered. Cardiology was consulted. UA: Negative Past Medical History Past Medical History: No Reported History History of Any Multi-Drug Resistant Organisms: None Reported Past Surgical History: No Surgical Hx Reported Past Anesthesia/Blood Transfusion Reactions: No Reported Reaction Past Psychological History: Anxiety, Depression Smoking Status: Never smoker Past Alcohol Use History: None Reported Past Drug Use History: None Reported Medications and Allergies Home Medications Medication Instructions Recorded Confirmed Type Aspirin 81 mg PO DAILY 03/16/23 02/05/24 History Budesonide/Formoterol Fumarate 2 puff INHALATION RT-BID 03/16/23 02/05/24 History [Symbicort 160-4.5 Mcg Inhaler] PARoxetine [Paxil] 20 mg PO DAILY 02/05/24 02/05/24 History QUEtiapine [SEROquel] 75 mg PO HS 02/05/24 02/05/24 History busPIRone HCl [Buspar] 5 mg PO BID 02/05/24 02/05/24 History Allergies Allergy/AdvReac Type Severity Reaction Status Date / Time Antihistamines - Piperazine Allergy Itching Verified 02/05/24 21:15 bacitracin Allergy Anaphylaxis Verified 02/05/24 21:15 [From Neosporin ([id number])] clobetasol Allergy Rash/Hives Verified 02/05/24 21:15 fluocinolone acetonide Allergy Rash/Hives Verified 02/05/24 21:15 neomycin Allergy Anaphylaxis Verified 02/05/24 21:15 [From Neosporin ([id number])] Penicillins Allergy Rash/Hives Verified 02/05/24 21:15 polymyxin B Allergy Anaphylaxis Verified 02/05/24 21:15 [From Neosporin ([id number])] codeine AdvReac Abdominal Verified 02/05/24 21:15 Pain Physical Exam Vitals: Vital Signs Temp Pulse Pulse Resp BP BP Pulse Ox 02/06/24 11:39 60 16 165/89 98 02/06/24 09:28 98.1 F 61 15 144/79 98 02/06/24 04:00 97.6 F 57 L 18 99/57 95 02/06/24 01:52 62 18 02/06/24 01:44 62 110/56 02/06/24 00:00 97.4 F L 61 18 182/84 96 02/05/24 23:00 62 18 02/05/24 22:53 97.0 F L 63 18 195/93 92 L 02/05/24 19:45 63 17 174/97 96 02/05/24 18:25 97.6 F 61 18 187/92 98 Intake and Output 02/05/24 02/06/24 02/06/24 22:59 06:59 14:59 Intake Total 10 110 Balance 10 110 Intake: IV 10 0.9 10 Oral 110 Other: Voiding Method Toilet Toilet # Voids 1 2 Weight 77.111 kg 77.1 kg Results CBC & Chem 7: 02/05/24 19:53 02/05/24 19:53 Labs: Abnormal Lab Results - Last 24 Hours (Table) 02/05/24 Range/Units 19:53 Chloride 109 H (98-107) mmol/L BUN 24 H (9-20) mg/dL Thrombosis Risk Factor Assmnt - Choose All That Apply Any of the Below Risk Factors Present?: No Other Risk Factors: Yes Each Risk Factor Represents 2 Points: Age 61-74 years Other congenital or acquired thrombophilia - If yes, enter type in comment: No Thrombosis Risk Factor Assessment Total Risk Factor Score: 2 Thrombosis Risk Factor Assessment Level: Low Risk
[2024-02-06] MEDS: LISINOPRIL-HCTZ 20-12.5 MG 1 EACH TAB PO SCH (20:03)
[2024-02-07 06:13] VITALS: PULSE 53
--- NOTE | 2024-02-07 09:42 | P.PN ---
Subjective Progress Note Date: 02/07/24 This is a 73-year-old gentleman with no prior cardiovascular history and never seen a health teacher before but history of asthma only who was admitted to the hospital for further evaluation of the bradycardia. The patient was in his usual state of health till yesterday and he was sitting home and felt tired. Subsequently he checked his blood pressure and heart rate. His pressure has been elevated but the heart rate has been in the 30s according to him. That was checked manually. He decided to come for further evaluation. He underwent an EKG in the hospital and that showed sinus mechanism with PVCs and during his hospital stay his heart rate did not drop below 50. He was not on any AV noy julio agents as an outpatient. His pressure noted to be elevated and subsequently was started on hydrochlorothiazide with improvement in the blood pressure. He reports no other cardiovascular symptoms of any chest pain or chest discomfort or dizziness or lightheadedness or presyncope or syncope or edema in the lower extremities. The first set of troponin came in to be unremarkable with no TSH or T4. The first set troponin is unremarkable but no second or third set of troponin. Echocardiogram still pending. The examination is remarkable for regular rhythm with a soft systolic murmur and clear breathing sounds bilaterally and no edema was noted in the lower extremities February 07, 2024 The patient was seen and evaluated this morning he is asymptomatic and seems to be hemodynamically stable with heart rate above 50s. The echo revealed normal biventricular systolic function with moderate mitral regurgitation with examination is remarkable for regular rhythm with a systolic murmur and clear breathing sounds bilaterally and no edema was noted. From the cardiovascular standpoint of view, the patient can be discharged home. Assessment Bradycardia by history Hypertension Asthma Plan Continue the current medical regimen Avoid any AV noy julio agents The patient can be discharged home Objective - Vital Signs Vital signs: Vital Signs Temp 97.2 F L 02/07/24 04:00 Pulse 53 L 02/07/24 04:00 Resp 18 02/07/24 04:00 BP 114/66 02/07/24 04:00 Pulse Ox 98 02/07/24 04:00 FiO2 Intake & Output 02/06/24 02/07/24 02/07/24 18:59 06:59 18:59 Intake Total 330 10 350 Balance 330 10 350 Weight 77.8 kg Intake: IV 10 0.9 10 Oral 330 350 Other: Voiding Method Toilet Toilet # Voids 2 1 - Labs CBC & Chem 7: 02/05/24 19:53 02/05/24 19:53
[2024-02-07 10:22] VITALS: BP 158/64; RESP 20; TEMP 97.4
[2024-02-07] MEDS: lisinopriL 10 MG TAB PO STA (11:13)
--- NOTE | 2024-02-07 21:32 | P.DS ---
Providers Date of admission: 02/05/24 22:16 Expected date of discharge: 02/07/24 Attending physician: Kyle Wong Consults: 02/05/24 21:17 Consult Physician Urgent Consulting Provider: [facility] Consult Reason/Comments: Symptomatic bradycardia Do you want consulting provider notified?: Yes, Notify in am Primary care physician: [facility] Hospital Course: Chief Complaint: Feeling unwell This is a pleasant 73-year-old patient, follows with Dr. Patel. Chronic stable medical condition include anxiety, depression, asthma. Patient yesterday afternoon just felt unwell. Took his vital signs. Heart rate was 30. Blood pressure was 210 x 110. Patient was previously on blood pressure medications has lost some weight. And he was taken off blood pressure medication June 2022. Denies any chest pain. EKG in the ER showed sinus rhythm. February 06: Patient blood pressure is better but further adjusted to peak given Z estoretic 20/12.5 twice daily to be discharged on this dose. Discussed with the patient. Will follow-up with Dr. Burgess outpatient. Questions answered. Discussion and discharge planning more than 35 minutes Social history: . Retired from the [employer]. No history of smoking alcohol. Physical examination: VITAL SIGNS: 97.4, 53, 20, 158 x 64, 100% room air GENERAL:, Vertebral EYES: Pupils equal. Conjunctiva frida l. HEENT: External appearance of nose and ears normal, oral cavity grossly normal. NECK: JVD not raised; masses not palpable. HEART: First and second heart sounds are normal; no edema. LUNGS: Respiratory rate normal; clear to auscultation. ABDOMEN: Soft, nontender, liver spleen not palpable, no masses palpable. PSYCH: Alert and oriented x3; mood and affect frida l. MUSCULOSKELETAL:No Clubbing/cyanosis;muscles-grossly intact INVESTIGATIONS, reviewed in the clinical context: White count 6.8 hemoglobin 14.5 platelets 155 potassium 4 creatinine 0.68 Troponin I less than 0.012 x 2 TSH 2.01 EKG tracing personally reviewed by me-normal sinus rhythm. PVC. Chest x-ray film personally reviewed by me-no acute 2D echocardiogram: Moderate mitral regurgitation. 60% Assessment plan: -Essential hypertension with urgency Zestoretic 20/12.5 twice daily -Sinus bradycardia -Moderate mitral regurgitation -Depression BuSpar. -Anxiety Paxil 20 mg a day -Insomnia Seroquel -Moderate persistent asthma Symbicort 160/4.52 puffs twice daily Disposition: Home Past Medical History Past Medical History: No Reported History History of Any Multi-Drug Resistant Organisms: None Reported Past Surgical History: No Surgical Hx Reported Past Anesthesia/Blood Transfusion Reactions: No Reported Reaction Past Psychological History: Anxiety, Depression Smoking Status: Never smoker Past Alcohol Use History: None Reported Past Drug Use History: None Reported Plan - Discharge Summary Discharge Rx Participant: Yes New Discharge Prescriptions: New Lisinopril-Hctz 20-12.5 mg [Zestoretic 20-12.5] 1 each PO BID #60 tab Continue Budesonide/Formoterol Fumarate [Symbicort 160-4.5 Mcg Inhaler] 2 puff INHALATION RT-BID Aspirin 81 mg PO DAILY QUEtiapine [SEROquel] 75 mg PO HS busPIRone HCl [Buspar] 5 mg PO BID PARoxetine [Paxil] 20 mg PO DAILY Discharge Medication List Aspirin 81 mg PO DAILY 03/16/23 [History] Budesonide/Formoterol Fumarate [Symbicort 160-4.5 Mcg Inhaler] 2 puff INHALATION RT-BID 03/16/23 [History] PARoxetine [Paxil] 20 mg PO DAILY 02/05/24 [History] QUEtiapine [SEROquel] 75 mg PO HS 02/05/24 [History] busPIRone HCl [Buspar] 5 mg PO BID 02/05/24 [History] Lisinopril-Hctz 20-12.5 mg [Zestoretic 20-12.5] 1 each PO BID #60 tab 02/07/24 [Rx] Follow up Appointment(s)/Referral(s): Jatin Patel DO [Primary Care Provider] - 1-2 days Kvng Burgess MD [STAFF PHYSICIAN] - 1 Week Patient Instructions/Handouts: Bradycardia (DC) Discharge Disposition: HOME SELF-CARE
== END 2024-02-07 12:26 | disposition home or self-care (01) ==
LOC: EC 18:02 → 3SCARD 22:16
PROVIDERS: ADMIT Hospitalist; ATTEND Hospitalist
DX: I16.0 Hypertensive urgency (principal); F32.A Depression, unspecified; F41.9 Anxiety disorder, unspecified; G47.00 Insomnia, unspecified; J45.40 Moderate persistent asthma, uncomplicated; I34.0 Nonrheumatic mitral (valve) insufficiency; I49.3 Ventricular premature depolarization; Z79.51 Long term (current) use of inhaled steroids; Z79.82 Long term (current) use of aspirin; Z79.899 Other long term (current) drug therapy
CPT/HCPCS: 96372 ×2; 96360; 96361; 99285; 36415; 94640 ×3; 93005; 93306; 80053; 84443; 83605; 83735; 84100; 84484 ×2; 85025; 85610; 85730; 81003; 71046; G0378 ×3; J1650 ×2

== ENCOUNTER → 2024-02-12 | Outpatient (CLI) | payer MEDICARE ==
--- NOTE | 2024-02-12 14:07 | CT ---
EXAMINATION TYPE: CT chest w con CT DLP: 375.0 mGycm, Automated exposure control for dose reduction was used. DATE OF EXAM: 02/12/2024 1:40 PM COMPARISON: Plain film 02/05/2024. CLINICAL INDICATION:Male, 73 years old with history of R91.1 SOLITARY PULMONARY NODULE; [facility], SOLITARY PULMONARY NODULE TECHNIQUE: Multiple axial images were obtained through the chest. Sagittal and coronal reformats were created for review. Contrast used:100ml mL of Isovue 300 with IV Contrast (None if empty) Oral contrast used: (None if empty) FINDINGS: LUNGS/ PLEURA: The lung parenchyma appears unremarkable. No focal consolidation, pneumothorax or ple ural effusion. AIRWAY: Patent and unremarkable. HEART: Size within normal limits.Atherosclerosis of the arterial vasculature. MEDIASTINUM: No gross evidence of adenopathy. VASCULATURE: No aortic aneurysm. No filling defect to suggest pulmonary embolus. MUSCULOSKELETAL: No acute osseous abnormalities SOFT TISSUES/LYMPH NODES: Unremarkable. LOWER NECK: No significant findings. UPPER ABDOMEN: Left simple renal cyst. IMPRESSION: 1. No pulmonary nodules are visualized. Finding on prior plain film is felt to be artifactual. 2. Moderate coronary artery atherosclerosis. 3. Simple appearing left renal cyst. Follow up recommendations for incidental pulmonary nodules, if there are any, are per Fleischner?s [place] [employer] or [place] [employer] [employer]. [email or web address].org/[email or web address]?lang=us
== END | disposition home or self-care (01) ==
LOC: RADCTMAIN 13:05
PROVIDERS: ATTEND Family Medicine
DX: I25.10 Atherosclerotic heart disease of native coronary artery without angina pectoris (principal); N28.1 Cyst of kidney, acquired; R91.1 Solitary pulmonary nodule
CPT/HCPCS: 71260; Q9967

== ENCOUNTER → 2024-05-31 | Outpatient (CLI) | payer MEDICARE ==
[2024-05-31 15:17] LABS: Blood Urea Nitrogen 22.5 mg/dL (9.0-27.0); Carbon Dioxide 26.9 mmol/L (21.6-31.8); Chloride 101 mmol/L (96-109); Potassium 4.8 mmol/L (3.5-5.5); Sodium 139 mmol/L (135-145)
[2024-05-31 16:24] LABS: HCT 44.8 % (39.6-50.0); HGB 14.4 g/dL (13.0-17.0); MCH 31.6 pg (27.0-32.0); MCHC 32.1 g/dL (32.0-37.0); MCV 98.2 FL (80.0-97.0); Mean Platelet Volume 12.5 FL (9.5-12.2); NRBC Per 100 WBC 0 X 10*3/uL (0.00-0.01); Platelet Count 168 X 10*3/uL (140-440); RBC 4.56 X 10*6/uL (4.40-5.60); RDW 13.7 % (11.5-14.5); WBC 6.48 X 10*3/uL (4.50-10.00)
== END | disposition home or self-care (01) ==
LOC: LABPAT 09:42
PROVIDERS: ATTEND Internal Medicine Interventional Cardiology
DX: Z01.812 Encounter for preprocedural laboratory examination (principal); I25.10 Atherosclerotic heart disease of native coronary artery without angina pectoris
CPT/HCPCS: 80051; 82565; 84520; 85027

== ENCOUNTER 2024-06-06 05:46 | Day surgery (SDC) | payer MEDICARE ==
[2024-06-06] MEDS ORDERED: NITROGLYCERIN SL TABS 0.4 MG TAB SUBLINGUAL PRN (06:01)
[2024-06-06] MEDS ORDERED: ALPRAZolam 0.25 MG TAB PO PRN (06:01)
[2024-06-06] MEDS ORDERED: ALPRAZolam 0.5 MG TAB PO PRN (06:01)
[2024-06-06] MEDS: IV FLUID CONTINUATION 1,000 ML IV ONE (06:22)
[2024-06-06 06:50] VITALS: RESP 16; TEMP 97.9
[2024-06-06] MEDS: SODIUM CHLORIDE 0.9% 1,000 ML in EMPTY BAG 1 BAG IV SCH (06:52)
[2024-06-06] MEDS ORDERED: ATORVASTATIN 80 MG TAB PO ONE (07:00)
[2024-06-06] MEDS ORDERED: ASPIRIN 325 MG TAB PO ONE (07:00)
[2024-06-06] MEDS: fentaNYL (PF) 50 MCG/ML 2 ML AMP IVP ONE (07:43)
[2024-06-06] MEDS: MIDAZOLAM 2 MG/2 ML VIAL IVP ONE (07:43)
[2024-06-06] MEDS: LIDOCAINE 1% INJ 10MG/ML (20 ML MDV) SQ ONE (07:44)
[2024-06-06] MEDS: VERAPAMIL SYRINGE (5 MG/10 ML) INTRAARTER ONE (07:46)
[2024-06-06] MEDS: HEPARIN SODIUM 1,000 UN/ML (10ML VL) IV ONE (07:48)
[2024-06-06] MEDS: HEPARIN SODIUM,PORCINE 10,000 UNIT in SODIUM CHLORIDE 0.9% 1,000 ML IRRIGATION PRN (07:49)
[2024-06-06] MEDS: HEPARIN SODIUM,PORCINE (1 ML) 2,500 UNIT in SODIUM CHLORIDE 0.9% 250 ML IRRIGATION PRN (07:49)
[2024-06-06] MEDS: IOPAMIDOL-370 100ML BTL INJ ONE (08:04)
[2024-06-06] MEDS ORDERED: RX INFO: IV CONTRAST WAS GIVEN 1 EACH MISC MISCELLANE PRN (08:13)
[2024-06-06] MEDS ORDERED: SODIUM CHLORIDE 0.9% 1,000 ML IV SCH (08:15)
--- NOTE | 2024-06-06 08:17 | P.PCN ---
Date of Procedure: 06/06/24 Operative Findings: CARDIAC CATHETERIZATION PERFORMING PHYSICIAN: Kvng Burgess MD, RPVI PROCEDURE PERFORMED: 1. Selective right and left coronary angiogram and left heart catheterization 2. IFR of the LAD 3. Ultrasound-guided access of the right radial artery INDICATION: Shortness of breath is a 74-year-old gentleman who underwent a CT scan and that showed extensive coronary calcifications. The symptoms of shortness of breath was concerning for angina COMPLICATION: None APPROACH: Right radial artery LEVEL OF SEDATION: Moderate with a sedation length of 27 minutes PROCEDURE DESCRIPTION: After obtaining an informed consent, the patient was brought to cardiac laborer ammunition assembly. Local anesthesia was performed using lidocaine subcutaneously. The right radial artery was cannulated using Seldinger technique, the guidewire passed easily, following that we advanced a 5-Jordanian sheath dilator assembly, the wire and dilator were removed and sheath was flushed. Following that, 2 mg of verapamil along with 5000 unit heparin were given. Selective right and left coronary angiogram using a 6-Jordanian JR4 and JL 3.5 catheters. Following that we did left heart catheterization using 6-Jordanian pigtail catheter. After that we decided to do an IFR of the LAD. After zeroing the Doppler wire and equalizing between the Doppler wire and guiding catheter which was JL 4 guiding catheter the left main was engaged and the LAD was wired with IFR came to be at 0.91 The procedure was completed there was no complication. SELECTIVE CORONARY ANGIOGRAM: The right coronary artery: Large caliber vessel and a dominant vessel and appears to be chronically occluded in the midportion and short segment Left main: Has mild disease only The left circumflex: Large caliber vessel nondominant vessel and appears to be also chronically occluded The left anterior descending artery: Large caliber vessel with intermediate lesion involving the midportion appears to be a tubular lesion and documented to be nonflow limiting by Doppler wire HEMODYNAMICS: The LVEDP was 11 mmHg with no significant gradient across aortic valve CONCLUSION: 1. 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 TIMBER MILL WORKER of the LCx as well 3. Intermediate disease involving the LAD documented to be nonflow limiting by Doppler wire 4. Normal left-sided filling pressure POSTPROCEDURE MANAGEMENT: Consider medical treatment at this point and if he remains symptomatic on more than 2 antianginal medications consider PCI of the RCA
[2024-06-06 12:05] VITALS: BP 135/75; PULSE 74
== END 2024-06-06 12:00 | disposition home or self-care (01) ==
LOC: CATHCVL 05:46
PROVIDERS: ATTEND Internal Medicine Interventional Cardiology
DX: I25.10 Atherosclerotic heart disease of native coronary artery without angina pectoris (principal); E78.5 Hyperlipidemia, unspecified; I49.3 Ventricular premature depolarization; I10 Essential (primary) hypertension; Z88.0 Allergy status to penicillin; Z88.5 Allergy status to narcotic agent; Z88.8 Allergy status to other drugs, medicaments and biological substances; Z79.82 Long term (current) use of aspirin; Z79.899 Other long term (current) drug therapy
CPT/HCPCS: 93458; 93799; 99152; 99153; J2250; J1644 ×3; J2003; J3010; Q9967

== ENCOUNTER → 2024-06-30 | Outpatient (CLI) | payer MEDICARE ==
[2024-06-30 07:33] LABS: African American GFR (CKD) >90 (>60 ml/min/1.73 sqM); Blood Urea Nitrogen 19 mg/dL (9-20); Non-African American GFR(CKD) 90 (>60 ml/min/1.73 sqM)
--- NOTE | 2024-06-30 11:08 | CT ---
EXAMINATION TYPE: CT chest wo/w con DATE OF EXAM: 06/30/2024 COMPARISON: 02/12/2024 CLINICAL INDICATION: Male, 74 years old with history of R91.1 SOLITARY PULMONARY NODULE; [facility], SOLITAR Y LUNG NODULE TECHNIQUE: CT scan of the chest is performed with IV Contrast, patient injected with 100 mL of Isovue 300. MIP Images are created on CT scanner and reviewed. 3D reconstructed images are created on an independent workstation and reviewed. CT DLP: 862.2 mGycm Automated exposure control for dose reduction was used. FINDINGS: LUNGS: The lungs are grossly clear, there is no concerning parenchymal mass or nodule identified. A minimal linear subsegmental consolidation most typical linear atelectasis or scarring. There is a st able 2 mm superior segment left lower lobe pulmonary micronodule image 14 series 4. Additionally ther e is a 3.5 mm nodule left lower lobe image 4573 There is a 2 mm subpleural nodule right lower lobe image 48 series 4 stable mild emphysematous change s. There is no pleural effusion or pneumothorax seen. The tracheobronchial tree is patent. MEDIASTINUM: A trace of pericardial fluid. Aorta measures a maximal dimension of 3.8 cm compatible wi th borderline aneurysm or ectasia. Mild atherosclerotic changes. There is dense coronary artery calci fication. No pathologic lymphadenopathy. OTHER: Multilevel hypertrophic and degenerative changes of the spine. Benign-appearing renal cysts t hickening of the left adrenal gland suggestive of a benign adenoma hyperplasia. IMPRESSION: 1. Bilateral sub-5 mm pulmonary nodules have a benign appearance. Recommend 12 month follow-up accord ing to Fleischner Society guidelines. 2. Dense coronary artery calcification. Aortic ectasia or borderline thoracic ascending aneurysm measuring maximal dimension of 3.8 cm. Follow-up recommendations for incidental pulmonary nodules are per Fleischner?s [place] [employer]ion or [employer] [employer]. [facility], , 06/30/2024 11:06 AM
== END | disposition home or self-care (01) ==
LOC: RADCTMAIN 06:17
PROVIDERS: ATTEND Internal Medicine
DX: I25.10 Atherosclerotic heart disease of native coronary artery without angina pectoris (principal); R91.8 Other nonspecific abnormal finding of lung field; I77.810 Thoracic aortic ectasia
CPT/HCPCS: 82565; 84520; 71270; 36415; Q9967

== ENCOUNTER 2024-07-20 02:00 | Emergency (ER) | payer MEDICARE ==
[2024-07-20 02:05] VITALS: TEMP 97.2
[2024-07-20 02:34] LABS: Basophils # (A) 0.1 k/uL (0-0.2); Basophils % (A) 1 %; Eosinophils # (A) 0.2 k/uL (0-0.7); Eosinophils % (A) 3 %; HCT 43.4 % (39.0-53.0); HGB 14.3 gm/dL (13.0-17.5); Lymphocytes # (A) 2.1 k/uL (1.0-4.8); Lymphocytes % (A) 31 %; MCH 31.5 pg (25.0-35.0); MCV 95.4 fL (80.0-100.0); Mean Platelet Volume 9.3; Monocytes # (A) 0.5 k/uL (0-1.0); Monocytes % (A) 7 %; Neutrophils % (A) 58 %; Platelet Count 142 k/uL (150-450); RBC 4.55 m/uL (4.30-5.90); RDW 12.4 % (11.5-15.5)
[2024-07-20 02:42] LABS: Partial Thromboplastin Time 22.9 sec (22.0-30.0); Prothrombin Time 11.2 sec (10.0-12.5)
[2024-07-20 02:44] LABS: ALT 26 U/L (4-49); AST 27 U/L (17-59); African American GFR (CKD) >90 (>60 ml/min/1.73 sqM); Albumin 4.5 g/dL (3.5-5.0); Alkaline Phosphatase 55 U/L (38-126); Anion Gap 14 mmol/L; Blood Urea Nitrogen 27 mg/dL (9-20); Calcium 9.3 mg/dL (8.4-10.2); Carbon Dioxide 22 mmol/L (22-30); Chloride 102 mmol/L (98-107); Glucose 140 mg/dL (74-99); Non-African American GFR(CKD) 79 (>60 ml/min/1.73 sqM); Potassium 3.7 mmol/L (3.5-5.1); Sodium 138 mmol/L (137-145); Total Bilirubin 0.4 mg/dL (0.2-1.3); Total Protein 6.9 g/dL (6.3-8.2)
--- NOTE | 2024-07-20 03:38 | ED ---
General Adult HPI - General Chief complaint: Weakness Stated complaint: Low BP, Weakness, Confusion Time Seen by Provider: 07/20/24 03:19 Source: patient Mode of arrival: wheelchair - History of Present Illness Initial comments: Serafin is a 74 yo M to the emergency department today via private vehicle for evaluation of some generalized weakness and hypotension at home. Reports that he was just feeling kind of off and he checked his noted that it was 77 systolic he was concerned about this decided come to the ER for evaluation. Patient states that he previously had uncontrolled hypertension and was on antihypertensives but this seems to have resolved recently he saw Dr. Dunne and had his lisinopril dose decreased from times to 5 mg he takes it nightly he did take it tonight. Patient states that even on only 5 mg he usually is having blood pressures in the low 100s. Patient denies any recent illness, fevers, chills, nausea, vomiting. He denies any chest pain palpitations or shortness of breath. He denies any lightheadedness or shortness of breath. - Related Data Home Medications Medication Instructions Recorded Confirmed Aspirin 81 mg PO DAILY 03/16/23 06/06/24 Budesonide/Formoterol Fumarate 2 puff INHALATION RT-BID 03/16/23 06/03/24 [Symbicort 160-4.5 Mcg Inhaler] PARoxetine [Paxil] 20 mg PO DAILY 02/05/24 06/03/24 QUEtiapine [SEROquel] 100 mg PO BID 02/05/24 06/06/24 busPIRone HCl [Buspar] 5 mg PO BID 02/05/24 06/03/24 lisinopriL [Zestril] 5 mg PO DAILY 06/03/24 06/06/24 Allergies Allergy/AdvReac Type Severity Reaction Status Date / Time Antihistamines - Piperazine Allergy Itching Verified 07/20/24 02:05 bacitracin Allergy Anaphylaxis Verified 07/20/24 02:05 [From Neosporin ([id number])] clobetasol Allergy Rash/Hives Verified 07/20/24 02:05 fluocinolone acetonide Allergy Rash/Hives Verified 07/20/24 02:05 neomycin Allergy Anaphylaxis Verified 07/20/24 02:05 [From Neosporin ([id number])] Penicillins Allergy Rash/Hives Verified 07/20/24 02:05 polymyxin B Allergy Anaphylaxis Verified 07/20/24 02:05 [From Neosporin ([id number])] codeine AdvReac Abdominal Verified 07/20/24 02:05 Pain Review of Systems ROS Statement: Those systems with pertinent positive or pertinent negative responses have been documented in the HPI. ROS Other: All systems not noted in ROS Statement are negative. Past Medical History Past Medical History: No Reported History, Cancer, Hyperlipidemia, Hypertension Additional Past Medical History / Comment(s): skin cancer on leg, picking up holter monitor 06/03/24 History of Any Multi-Drug Resistant Organisms: None Reported Past Surgical History: No Surgical Hx Reported Past Anesthesia/Blood Transfusion Reactions: No Reported Reaction Past Psychological History: Anxiety, Depression Smoking Status: Never smoker - Past Family History Father Family Medical History: Unable to Obtain General Exam - General Exam Comments Initial Comments: Physical Exam GENERAL: Patient is well-developed and well-nourished. Patient is nontoxic and well-hydrated and is in no distress. HENT: Normocephalic, Atraumatic. EYES: PERRL, EOMI PULMONARY: Unlabored respirations. CARDIOVASCULAR: RRR Warm and well perfused extremities ABDOMEN: Non-distended SKIN: No rashes or bruising : Deferred NEUROLOGIC: Alert and oriented Normal speech Normal gait MUSCULOSKELETAL: Moving all extremities with no apparent injury PSYCHIATRIC: No SI/HI Course Vital Signs 07/20/24 07/20/24 07/20/24 02:02 03:45 04:00 Temperature 97.2 F L Pulse Rate 66 59 L Respiratory 18 17 Rate Blood Pressure 105/64 101/71 111/67 O2 Sat by Pulse 98 97 Oximetry EKG Findings - EKG Comments: EKG Findings:: EKG interpreted by me, EKG obtained due to hypotension and gener alized weakness, EKG obtained at 2:11 AM rate is 80 rhythm is sinus with frequent PVCs. Normal intervals, W[place] 165 QRS 104 QTc 455, no acute ST elevations or depressions no evidence of acute ischemia or infarction. Medical Decision Making - Medical Decision Making Was pt. sent in by a medical professional or institution (, PA, SHIPPING MANAGER, urgent care, hospital, or assisted...) When possible be specific @ -No Did you speak to anyone other than the patient for history (EMS, parent, family, police, friend...)? What history was obtained from this source @ -Patient Did you review nursing and triage notes (agree or disagree)? Why? @ -I reviewed and agree with nursing and triage notes Were old charts reviewed (outside hosp., previous admission, EMS record, old EKG, old radiological studies, urgent care reports/EKG's, assisted records)? Report findings @ -No old charts were reviewed Differential Diagnosis (chest pain, altered mental status, abdominal pain women, abdominal pain men, vaginal bleeding, weakness, fever, dyspnea, syncope, headache, dizziness, GI bleed, back pain, seizure, CVA, palpatations, mental health)? @ -Differential Weakness: Hypoglycemia, shock, sepsis, hyponatremia, anemia, infection, CA, ETOH, adverse medicine reaction, overdose, stroke, this is not meant to be an all-inclusive list. EKG interpreted by me (3pts min.). @ -As above X-rays interpreted by me (1pt min.). @ -None done CT interpreted by me (1pt min.). @ -None done U/S interpreted by me (1pt. min.). @ -None done What testing was considered but not performed or refused? (CT, X-rays, U/S, labs)? Why? @ -None What meds were considered but not given or refused? Why? @ -None Did you discuss the management of the patient with other professionals (professionals i.e. , PA, SHIPPING MANAGER, lab, RT, psych nurse, social insurance analyst, advertising strategist, teacher, environmental compliance officer, correctional casework specialist)? Give summary @ -No Was smoking cessation discussed for >3mins.? @ -No Was critical care preformed (if so, how long)? @ -No Were there social determinants of health that impacted care today? How? (Homelessness, low income, unemployed, alcoholism, drug addiction, transportation, low edu. Level, literacy, decrease access to med. care, prison, rehab)? @ -No Was there de-escalation of care discussed even if they declined (Discuss DNR or withdrawal of care, Hospice)? DNR status @ -No What co-morbidities impacted this encounter? (DM, HTN, Smoking, COPD, CAD, Can cer, CVA, ARF, Chemo, Hep., AIDS, mental health diagnosis, sleep apnea, morbid obesity)? @ -Hypertension Was patient admitted / discharged? Hospital course, mention meds given and route, prescriptions, significant lab abnormalities, going to OR and other pertinent info. @ -Discharged Patient was seen and evaluated history is obtained from patient. Patient had generalized weakness checked his blood pressure was low at home came to the ER for evaluation and upon arrival here his blood pressure is much better than his home monitor. Labs were obtained BUN is mildly elevated patient might be mildly dehydrated he received some IV fluids he was hemodynamically stable here asymptomatic feeling well comfortable plan for discharge home. Discussed with his workers' compensation claims examiner whether or not he should discontinue use of lisinopril as he has been getting low blood pressure readings at home. Undiagnosed new problem with uncertain prognosis? @ -No Drug Therapy requiring intensive monitoring for toxicity (Heparin, Nitro, Insulin, Cardizem)? @ -No Were any procedures done? @ -No Diagnosis/symptom? @Hypotension Acute, or Chronic, or Acute on Chronic? @ -Default Uncomplicated (without systemic symptoms) or Complicated (systemic symptoms)? @ -Default Side effects of treatment? @ -No Exacerbation, Progression, or Severe Exacerbation? @ -No Poses a threat to life or bodily function? How? (Chest pain, USA, CA, pneumonia, PE, COPD, DKA, ARF, appy, cholecystitis, CVA, Diverticulitis, Homicidal, Suicidal, threat to staff... and all critical care pts) @ -No - Lab Data Result diagrams: 07/20/24 02:20 07/20/24 02:20 Lab Results 07/20/24 07/20/24 07/20/24 Range/Units 02:20 02:20 02:20 WBC 7.0 (3.8-10.6) k/uL RBC 4.55 (4.30-5.90) m/uL Hgb 14.3 (13.0-17.5) gm/dL Hct 43.4 (39.0-53.0) % MCV 95.4 (80.0-100.0) fL MCH 31.5 (25.0-35.0) pg MCHC 33.0 (31.0-37.0) g/dL RDW 12.4 (11.5-15.5) % Plt Count 142 L (150-450) k/uL MPV 9.3 Neutrophils % 58 % Lymphocytes % 31 % Monocytes % 7 % Eosinophils % 3 % Basophils % 1 % Neutrophils # 4.0 (1.3-7.7) k/uL Lymphocytes # 2.1 (1.0-4.8) k/uL Monocytes # 0.5 (0-1.0) k/uL Eosinophils # 0.2 (0-0.7) k/uL Basophils # 0.1 (0-0.2) k/uL PT 11.2 (10.0-12.5) sec INR 1.0 (<1.2) APTT 22.9 (22.0-30.0) sec Sodium 138 (137-145) mmol/L Potassium 3.7 (3.5-5.1) mmol/L Chloride 102 (98-107) mmol/L Carbon Dioxide 22 (22-30) mmol/L Anion Gap 14 mmol/L BUN 27 H (9-20) mg/dL Creatinine 0.95 (0.66-1.25) mg/dL Est GFR (CKD-EPI)AfAm >90 (>60 ml/min/1.73 sqM) Est GFR (CKD-EPI)NonAf 79 (>60 ml/min/1.73 sqM) Glucose 140 H (74-99) mg/dL Plasma Lactic Acid Junaid (0.7-2.0) mmol/L Calcium 9.3 (8.4-10.2) mg/dL Total Bilirubin 0.4 (0.2-1.3) mg/dL AST 27 (17-59) U/L ALT 26 (4-49) U/L Alkaline Phosphatase 55 (38-126) U/L Troponin I (0.000-0.034) ng/mL Total Protein 6.9 (6.3-8.2) g/dL Albumin 4.5 (3.5-5.0) g/dL Urine Color Urine Appearance (Clear) Urine pH (5.0-8.0) Ur Specific [place] (1.001-1.035) Urine Protein (Negative) Urine Glucose (UA) (Negative) Urine Ketones (Negative) Urine Blood (Negative) Urine Nitrite (Negative) Urine Bilirubin (Negative) Urine Urobilinogen (<2.0) mg/dL Ur Leukocyte Esterase (Negative) 07/20/24 07/20/24 07/20/24 Range/Units 02:20 03:21 03:30 WBC (3.8-10.6) k/uL RBC (4.30-5.90) m/uL Hgb (13.0-17.5) gm/dL Hct (39.0-53.0) % MCV (80.0-100.0) fL MCH (25.0-35.0) pg MCHC (31.0-37.0) g/dL RDW (11.5-15.5) % Plt Count (150-450) k/uL MPV Neutrophils % % Lymphocytes % % Monocytes % % Eosinophils % % Basophils % % Neutrophils # (1.3-7.7) k/uL Lymphocytes # (1.0-4.8) k/uL Monocytes # (0-1.0) k/uL Eosinophils # (0-0.7) k/uL Basophils # (0-0.2) k/uL PT (10.0-12.5) sec INR (<1.2) APTT (22.0-30.0) sec Sodium (137-145) mmol/L Potassium (3.5-5.1) mmol/L Chloride (98-107) mmol/L Carbon Dioxide (22-30) mmol/L Anion Gap mmol/L BUN (9-20) mg/dL Creatinine (0.66-1.25) mg/dL Est GFR (CKD-EPI)AfAm (>60 ml/min/1.73 sqM) Est GFR (CKD-EPI)NonAf (>60 ml/min/1.73 sqM) Glucose (74-99) mg/dL Plasma Lactic Acid Junaid 1.7 (0.7-2.0) mmol/L Calcium (8.4-10.2) mg/dL Total Bilirubin (0.2-1.3) mg/dL AST (17-59) U/L ALT (4-49) U/L Alkaline Phosphatase (38-126) U/L Troponin I <0.012 (0.000-0.034) ng/mL Total Protein (6.3-8.2) g/dL Albumin (3.5-5.0) g/dL Urine Color Light Yellow Urine Appearance Clear (Clear) Urine pH 5.0 (5.0-8.0) Ur Specific [place] 1.014 (1.001-1.035) Urine Protein Negative (Negative) Urine Glucose (UA) Negative (Negative) Urine Ketones Negative (Negative) Urine Blood Negative (Negative) Urine Nitrite Negative (Negative) Urine Bilirubin Negative (Negative) Urine Urobilinogen <2.0 (<2.0) mg/dL Ur Leukocyte Esterase Negative (Negative) Disposition Clinical Impression: Hypotension Disposition: HOME SELF-CARE Condition: Stable Additional Instructions: Call Dr Burgess to discuss stopping antihypertensive medications Is patient prescribed a controlled substance at d/c from ED?: No Referrals: Cody Ovalle MD [Primary Care Provider] - 1-2 days
--- NOTE | 2024-07-20 04:11 | XR ---
EXAM: XR Chest, 2 Views CLINICAL HISTORY: ITS.REASON XR Reason: Weakness TECHNIQUE: Frontal and lateral views of the chest. COMPARISON: No relevant prior studies available. FINDINGS: Lungs: Unremarkable. No consolidation. Pleural space: Unremarkable. No pneumothorax. Heart: Unremarkable. No cardiomegaly. Mediastinum: Unremarkable. Normal mediastinal contour. Bones/joints: Degenerative changes are seen within the spine and shoulders. No acute fracture. IMPRESSION: No acute findings in the chest.
[2024-07-20 04:21] VITALS: RESP 17
[2024-07-20 04:36] LABS: Appearance,Urine Clear (Clear); Bilirubin,Urine Negative (Negative); Blood,Urine Negative (Negative); Color,Urine Light Yellow; Glucose,Urine (UA) Negative (Negative); Ketones,Urine Negative (Negative); Leukocyte Esterase,Urine Negative (Negative); Nitrite,Urine Negative (Negative); Protein,Urine Negative (Negative); Specific Gravity,Urine 1.014 (1.001-1.035); Urobilinogen,Urine <2.0 mg/dL (<2.0)
[2024-07-20] MEDS: SODIUM CHLORIDE 0.9% 500 ML 500 ML IV ONE (05:11)
[2024-07-20 05:33] VITALS: BP 115/71; PULSE 61
== END 2024-07-20 05:53 | disposition home or self-care (01) ==
LOC: EC 02:00
DX: I10 Essential (primary) hypertension (principal); Z79.899 Other long term (current) drug therapy; Z88.0 Allergy status to penicillin; Z88.5 Allergy status to narcotic agent; Z79.82 Long term (current) use of aspirin; Z88.8 Allergy status to other drugs, medicaments and biological substances
CPT/HCPCS: 36415; 71046; 80053; 81003; 83605; 84484; 85025; 85610; 85730; 93005; 96360; 99285

== ENCOUNTER → 2024-10-04 | Outpatient (CLI) | payer MEDICARE ==
--- NOTE | 2024-10-04 07:23 | CT ---
EXAMINATION TYPE: CT chest w con CT DLP: 392.5 mGycm, Automated exposure control for dose reduction was used. DATE OF EXAM: 10/04/2024 7:12 AM COMPARISON: CT chest 06/30/2024, 02/12/2024 CLINICAL INDICATION:Male, 74 years old with history of R97.0 ELEVATED CARCINOEMBRYONIC ANTIGEN [CEA]; PHH, elevated CEA TECHNIQUE: Multiple axial images were obtained through the chest following the administration of 100 cc of Isovue 300. . Coronal and sagittal reformats reviewed. FINDINGS: LUNGS/ PLEURA: No pleural effusion, pneumothorax, focal consolidation. Stable left lower lobe superi or segment 2 mm pulmonary nodule (series 4, image 14). Stable left lower lobe 4.9 mm pulmonary nodule (series 4, image 42). Stable peripheral right lower lobe 3.6 mm subpleural pulmonary nodule (series 4, image 46). Stable right middle lobe subpleural 3.8 mm pulmonary nodule (series 4, image 45). No ne w or enlarging pulmonary nodules. Minimal centrilobular emphysematous changes. AIRWAY: Patent and unremarkable.. HEART: Size within normal limits.Trace anterior pericardial fluid. Moderate coronary artery calcifica tions present most prominent along the LAD. MEDIASTINUM: No evidence of adenopathy. VASCULATURE: No aortic aneurysm. No evidence for pulmonary embolism. MUSCULOSKELETAL: No acute osseous abnormalities. DISH of the thoracic spine. SOFT TISSUES/LYMPH NODES: Unremarkable. LOWER NECK: No significant findings. UPPER ABDOMEN: Right renal exophytic cyst measuring 2.2 cm. Left renal anterior exophytic 4.7 cm cyst . IMPRESSION: Few stable pulmonary nodules measuring less than 5 mm. No new or enlarging pulmonary nodules. Conside red benign. [facility], , 10/04/2024 7:21 AM
== END | disposition home or self-care (01) ==
LOC: RADCTMAIN 06:27
PROVIDERS: ATTEND Internal Medicine
DX: R91.8 Other nonspecific abnormal finding of lung field (principal); R97.0 Elevated carcinoembryonic antigen [CEA]
CPT/HCPCS: 71260; Q9967